=== PATIENT | female | born 1955 | race Two or more races ===

== ENCOUNTER 2024-09-08 18:51 | Emergency (ER) | payer MEDICARE, SELFPAY ==
[2024-09-08 19:18] VITALS: BP 146/70; PULSE 98; RESP 18; TEMP 36.6; O2SAT 100; BMI 26.2
--- NOTE | 2024-09-08 19:22 | EDNOTE_ITS ---
<Statement entered by Angelica Cerda MD - 09/08/24 19:43> As co-signing physician, I was present and available for consult prn. I concur with the plan and care as documented by the midlevel provider. ED Skin Abcess FB-RME/HPI General Chief complaint: Abdominal Pain Stated complaint: RIGHT LOWER QUADRANT PAIN Time Seen by Provider: 09/08/24 19:10 Arrival date/time: 09/08/24 18:51 69 year old female present to emergency room with c/o of rash for 3 days. pt report abd and back pain. LOCATION: abd and back SEVERITY: Symptoms are described as being severe with limitations on activities of daily living QUALITY: Symptoms are described as being dull or achy CONTEXT: The patient is unable to identify any inciting events. DURATION/TIMING: The symptoms started approximately one day ago and have been constant this then, and have been progressive getting worse. ASSOCIATED SYMPTOMS: The patient is unable to identify any other associated symptoms. MODIFYING FACTORS: The patient is unable to identify any alleviating or aggravating symptoms. PERTINENT ROS: denies IVDU, states no immunocompromising condition, denies any penetrating trauma, no fever, no unexplained nausea or vomiting, no headache, no chest pain REVIEW OF SYSTEMS: See History of Present Illness - with the exception of those mentioned in the history of present illness, all other systems reviewed and reported as negative GENERAL: In general the patient is awake, interactive, in an emergency department gurney. HEAD/EYES/EARS/NOSE/THROAT: normo-cephalic, atraumatic, mucus membranes are moist, anicteric, palpebral conjunctiva is pink, trachea is midline. ABDOMEN: soft, not tender, no masses appreciated BACK: normal range of motion without pain. NEUROLOGICAL: cranio-facial features are symmetric, moves all four extremities equally without obvious limitations or weakness. EXTREMITY: no tenderness to palpation over the long bones or large joints of the bilateral upper and lower extremities, no joint swelling, no joint erythema, no signs of trauma, no unilateral leg swelling and no peripheral edema. SKIN: warm, dry, well-perfused, no jaundice, + group like erythema rash consisted with shingles left abd/back region, does not cross dermatones no telangiectasias or petechia. PSYCH: calm, cooperative, no evidence of psychosis or agitation Related Data Previous Rx's ?Medication ?Instructions ?Recorded acyclovir 800 mg tablet 800 mg PO .5x 7 days #35 tabs 09/08/24 Allergies Allergy/AdvReac Type Severity Reaction Status Date / Time No Known Allergies Allergy Verified 09/08/24 18:52 Course Course Course Narrative: Patient presenting with shingles Presentation consistent with Herpes Zoster.? N o evidence of eye involvement.? No evidence of infections including cellulitis, measles, rubella.? Supportive therapies discussed.? Antiviral therapy prescribed. Discussed with patient that zoster patients may have pain persisting despite medications.? Return if having high fever, significant spread, pain, eye involvement, or other concerns. Plan:? Educated Pt on Dx of Herpes zoster, including typical resolution in 2-4wk? Prescribed acyclovir 800mg 5x for 7 days Advised on OTC acetaminophen or ibuprofen as directed for pain Advised Pt on supportive therapies, including application of warm compresses for pain control, loose/open shirts to decrease skin irritation, gently washing blisters w/ soap and H2O, refrain from opening any blisters, OTC analgesics, calamine lotion, and covering any ruptured lesions. Instructed patient to monitor for signs of worsening pain or fever, neck stiffening, hearing loss, decreased cognition, worsening inflammation, or blistering with discharge.? Return with new or worsening symptoms.?? Quality Measures none Orders Category Date Time Status Acyclovir [Zovirax] Med 09/08/24 19:18 Discontinued 800 mg PO X1 ONE Gabapentin Med 09/08/24 19:18 Discontinued 400 mg PO X1 ONE Vital Signs Vital signs: Vital Signs Temperature 98 F 09/08/24 19:18 Pulse Rate 98 09/08/24 19:18 Respiratory Rate 18 09/08/24 19:18 Blood Pressure 146/70 H 09/08/24 19:18 Pulse Oximetry (%) 100 09/08/24 19:18 Oxygen Delivery Method Room Air 09/08/24 19:18 Skin / Abscess / Foreign Body Patient data External records reviewed:: None Clinical information provided by:: patient Social determinants that could affect healthcare access:: none Patient has the following chronic illnesses:: none How is presenting disease/condition affected by chronic disease/condition?: no chronic disease Evaluation data The following diagnostics were reviewed and interpreted by me:: other (specify) (none ) Lab and/or radiology exams considered but not ordered:: none Interpretation Summary: none Medications / Prescriptions Medications or Prescriptions considered but not ordered:: none Medication administrations:: Medication Administration History Discontinued Medications Acyclovir (Acyclovir 800 Mg Tablet) 800 mg PO X1 ONE Stop: 09/08/24 19:19 Gabapentin (Gabapentin 100 Mg Capsule) 400 mg PO X1 ONE Stop: 09/08/24 19:19 as stated above Consultations Consultation(s) initiated? (list below): No Diagnosis Skin/Abscess Differential Diagnosis: urticaria, herpes zoster, allergic reaction to drug and insect bites Most likely diagnosis given after review of the tests above:: shingles Admission Indicated Admission indicated?: not indicated Admission Request Was there a request for admission?: No Disposition Plan Disposition Plan: Discharge Discharge Attestation Discharge Attestation: The patient and all family members were given an opportunity to ask questions and understood the discharge instructions. Discharge instructions specifically effects, indications for sooner follow up or return to the emergency department, and the expected course of current diagnosis. Patient condition: Stable Discharge Plan Plan Patient Disposition: HOME (Self Care) Prescriptions/Referrals Prescriptions/Med Rec: New acyclovir 800 mg tablet 800 mg PO .5x 7 Days Qty: 35 0RF Rx Instructions: while awake; give 5 doses in 24 hours Problem List Clinical Impression: Shingles Patient/Caregiver Discharge Instructions Education Materials: ED Shingles (Herpes Zoster) Print Language: Irish Stand Alone Forms: Ros[employer]e Award Info., Patient Portal Info Letter
[2024-09-08] MEDS: ACYCLOVIR 800 MG TABLET PO (19:43)
[2024-09-08] MEDS: GABAPENTIN 100 MG CAPSULE 400 MG PO (19:46)
== END 2024-09-08 19:49 | disposition home or self-care (01) ==
LOC: SERX 19:31
PROVIDERS: Emergency Provider Emergency Medicine
DX: B02.9 Zoster without complications (principal)
CPT/HCPCS: 99282; A9270

== ENCOUNTER 2024-09-16 13:16 | Emergency (ER) | payer MEDICARE, SELFPAY ==
[2024-09-16] VITALS (7 sets, daily range): BP systolic 125–168; BP diastolic 67–88; PULSE 71–110; RESP 14–20; TEMP 36.6–36.9; O2SAT 97–100
--- NOTE | 2024-09-16 13:38 | PD.EDRME ---
Rapid Medical Screening Exam E Arrival date/time: 09/16/24 13:16 This is a 69-year-old female that comes into the emergency room with complaints of left lower quadrant abdominal pain. Patient reports that she was recently diagnosed with shingles approximately 1 week ago and has them to her left flank and left lower abdomen. Patient states that most of the pain is gone but the pain is more internal. Patient denies any nausea vomiting diarrhea. Patient has a history of diabetes, high blood pressure, hyperlipidemia, thyroid disease. I have greeted and performed a focused initial assessment of this patient. Initial appropriate labs ordered at this time. A comprehensive ED assessment and evaluation of the patient and analysis of all test and completion of medical decision making process will be conducted by additional ED provider. Chief Complaint: Abdominal Pain Time Seen by Provider: 09/16/24 13:32 Vital signs: Vital Signs Temperature 98.4 F 09/16/24 13:30 Pulse Rate 110 H 09/16/24 13:30 Respiratory Rate 20 09/16/24 13:30 Blood Pressure 125/74 09/16/24 13:30 Pulse Oximetry (%) 98 09/16/24 13:30 Oxygen Delivery Method Room Air 09/16/24 13:30
[2024-09-16 14:16] LABS: Collection Type, Urine Voided
[2024-09-16 15:01] LABS: Basophils # (Auto) 0.1 Thou/mm3 (0.0-0.2); Basophils % (Auto) 1 % (0-2.5); Eosinophils # (Auto) 0.1 Thou/mm3 (0.0-0.5); Eosinophils % (Auto) 1 % (0-10); Hematocrit 30.6 % (36.0-46.0); Hemoglobin 9.7 g/dL (12.0-16.0); Immature Granulocytes % (Auto) 0 % (0-0); Immature Granulocytes Auto 0.02 Thou/mm3 (0.00-0.00); Lymphocytes % (Auto) 22 % (10-50); Mean Corpuscular HGB Conc 31.7 g/dl (31.0-37.0); Mean Corpuscular Hemoglobin 24.9 pg (25.0-35.0); Mean Corpuscular Volume 79 fL (80-100); Monocytes # (Auto) 0.5 Thou/mm3 (0.0-0.8); Monocytes % (Auto) 6 % (0-12); Neutrophils # (Auto) 6.2 Thou/mm3 (1.8-7.7); Neutrophils % (Auto) 70 % (37-80); Nucleated Red Blood Cell % 0 /100 WBC (0); Platelet Count 289 Thou/mm3 (140-440); RDW Standard Deviation 45.6 fL (36.4-46.3); White Blood Count 8.8 Thou/mm3 (3.6-11.0)
[2024-09-16 15:02] LABS: Alanine Aminotransferase 32 U/L (10-49); Albumin, Serum 3.7 gm/dL (3.4-4.8); Albumin/Globulin Ratio 1.5 (1.2-2.2); Alkaline Phosphatase 130 U/L (46-116); Anion Gap 7 (7-16); Aspartate Amino Transferase 18 U/L (0-34); BUN/Creatinine Ratio 10 Ratio (12-20); Bilirubin,Total 0.3 mg/dL (0.3-1.2); Blood Urea Nitrogen 13 mg/dL (9-23); Calcium 8.9 mg/dL (8.3-10.6); Calcium (Corrected) 9.1 mg/dL (8.5-10.1); Carbon Dioxide 27.6 mMol/L (20.0-31.0); Chloride 99 mMol/L (98-107); Creatinine (Component) 1.3 mg/dL (0.6-1.3); Estimated Creatinine Clearance 35.1 mL/min (>60); Globulin 2.5 gm/dL (2.3-3.5); Lipase 72 U/L (12-53); Osmolality,Calculated 293 (275-295); Potassium 3.4 mMol/L (3.4-5.1); Sodium 134 mMol/L (136-145); Total Protein 6.2 gm/dL (5.7-8.2); eGFR 45 See Note
[2024-09-16 15:04] LABS: Glucose 544 mg/dL (74-106)
[2024-09-16 15:33] LABS: Bacteria,Urine 4+; Bilirubin,Urine Negative (Negative); Blood,Urine 1+ (Negative); Clarity,Urine Turbid (Clear/Hazy); Color,Urine Yellow (Lt Yel-Yel); Glucose, Urine 4+ (Negative); Ketones,Urine 1+ (Negative); Nitrite,Urine Negative (Negative); PH,Urine 6.5 (5.0-7.0); Protein,Urine 3+ (Neg - Trace); RBC,Urine 6 /hpf (0-3); Specific Gravity,Urine 1.024 (1.001-1.035); Squamous Epithelial Cell,Urine 3 /hpf (0-5); Urobilinogen,Urine Negative mg/dL (0.0-1.0); WBC,Urine 17 /hpf (0-5)
[2024-09-16 15:38] LABS: Culture Indicated,Urine Yes; Leukocyte Esterase,Urine Positive (Negative)
--- NOTE | 2024-09-16 20:25 | EDNOTE_ITS ---
ED Abdominal Pain RME/HPI General Chief Complaint: Abdominal Pain Stated complaint: LLQ ABD PAIN Time seen by provider: 09/16/24 13:32 Arrival date/time: 09/16/24 13:16 RME / HPI RME / HPI narrative: 69-year-old female patient with significant history of hypertension, recent diagnosis of shingles to the left flank pain area, currently taking antiviral medication, came in for evaluation regarding worsening pain to the left flank area radiating to the front. This been going for at least 1 week, described as sharp pain, severity moderate. Patient denies any vomiting. Denies any fever. Denies any diarrhea constipation. Denies any dysuria. No medications taken prior travel. Related Data Previous Rx's ?Medication ?Instructions ?Recorded cefuroxime axetil 500 mg tablet 500 mg PO BID #14 tabs 09/16/24 Allergies Allergy/AdvReac Type Severity Reaction Status Date / Time No Known Allergies Allergy Verified 09/08/24 18:52 Review of Systems Review of Systems Narrative Review of Systems: Review of system reviewed and within normal limits except mentioned in HPI ED Exam Narrative Physical exam: VITAL SIGNS: Reviewed. GENERAL APPEARANCE: Alert and interactive, follows commands, no acute distress, HEAD AND FACE: Non-traumatic. ENT: PERRL, pink conjunctivitis, eyelid no trauma, Mucous membrane moist. NECK: Supple, nontender, no nuchal rigidity. CHEST: No tenderness, no crepitus, no paradoxical movement, no retractions. LUNGS: Clear, well ventilated, symmetric, no rales, no wheezing, no ronchi, no stridor, good breath sounds bilaterally. HEART: Regular rate, regular rhythm, no murmur, no gallops. ABDOMEN: Soft, positive bowel sounds, nondistended, no guarding, nontender, no rebound, no masses, +multiple dry lesions with scabbing, left flank area with tenderness RECTAL: Deferred. GENITAL: Deferred. NEUROLOGICAL: Gross motor function intact sensory function intact, Appropriate for age. MUSCULOSKELETAL: low back nontender, full range of motion. EXTREMITIES: Nontender, full range of motion. SKIN: Color pink, dry, no rash, no lacerations, no abrasions, no contusions. LYMPHATICS: Deferred. Course Quality Measures none Orders Category Date Time Status CBC Stat Lab 09/16/24 14:21 Completed Comprehensive Metabolic Panel Stat Lab 09/16/24 14:21 Completed Lipase Stat Lab 09/16/24 14:21 Completed Urinalysis, C/S if Indicated Stat Lab 09/16/24 13:57 Completed Urine Culture Stat Lab 09/16/24 13:57 Received Ketorolac Inj [Toradol Inj] Med 09/16/24 20:24 Discontinued 30 mg IVP X1 ONE Sodium Chloride 0.9% 1000 ml [Ns] 1,000 ml Med 09/16/24 20:24 Discontinued IV 999 mls/hr cefTRIAXone/D5w 1gm IV premix [Rocephin/D5w 1gm IV Med 09/16/24 20:25 Discontinued premix] 50 ml IV X1 Vital Signs Vital signs: Vital Signs Temperature 98.4 F 09/16/24 13:30 Pulse Rate 110 H 09/16/24 13:30 Respiratory Rate 20 09/16/24 13:30 Blood Pressure 125/74 09/16/24 13:30 Pulse Oximetry (%) 98 09/16/24 13:30 Oxygen Delivery Method Room Air 09/16/24 13:30 Abdominal Pain MDM MDM Narrative MDM Narrative:: Patient initial blood sugar was noted to be above 500, with no sign of diabetic ketoacidosis. Patient received IV fluids for hydration, patient refused insulin here she told me that she had a lot of insulin at home she will give herself insulin when she arrived tonight. Patient was also given supraduction IV Fe. For UTI. The rest of the labs are Patient data External records reviewed:: None Clinical information provided by:: none Social determinants that could affect healthcare access:: none Patient has the following chronic illnesses:: Hypertension How is presenting disease/condition affected by chronic disease/condition?: exacerbated by Evaluation data The following diagnostics were reviewed and interpreted by me:: lab results and radiology exam(s) Lab and/or radiology exams considered but not ordered:: None Interpretation Summary: CBC no leukocytosis noted, except for hemoglobin of 9.7 hematocrit 30.6 glucose of 544 with no sign of DKA. Urinalysis positive for UTI Medications / Prescriptions Medications or Prescriptions considered but not ordered:: None Medication administrations:: Medication Administration History Discontinued Medications Sodium Chloride (Ns) 1,000 mls @ 999 mls/hr IV .Q1H1M ONE Stop: 09/16/24 21:24 Last Admin: 12/07/24 20:56 Dose: 999 mls/hr Documented By: NILAY Ceftriaxone Sodium/Dextrose (Rocephin/D5w 1gm Iv Premix) 50 mls @ 100 mls/hr IV X1 ONE Stop: 09/16/24 20:54 Last Admin: 09/16/24 20:56 Dose: 100 mls/hr Documented By: NILAY Ketorolac Tromethamine (Ketorolac Inj 30 Mg/Ml Vial) 30 mg IVP X1 ONE Stop: 09/16/24 20:25 Last Admin: 09/16/24 20:55 Dose: 30 mg Documented By: NILAY Toradol, ceftriaxone, and IV fluids Consultations Consultation(s) initiated? (list below): No Diagnosis Differential diagnosis abdominal pain: other (UTI, postherpetic pain secondary to shingles left flank area) Most likely diagnosis given after review of the tests above:: UTI, hyperglycemia Admission Indicated Admission indicated?: not indicated Explain why admission is indicated or not indicated:: Stable for discharge Admission Request Was there a request for admission?: No Disposition Plan Disposition Plan: Discharge Discharge Attestation Discharge Attestation: The patient and all family members were given an opportunity to ask questions and understood the discharge instructions. Discharge instructions specifically effects, indications for sooner follow up or return to the emergency department, and the expected course of current diagnosis. Patient condition: Stable Discharge Plan Plan Patient Disposition: HOME (Self Care) Disposition Comment: stable Prescriptions/Referrals Prescriptions/Med Rec: New cefuroxime axetil 500 mg tablet 500 mg PO BID Qty: 14 0RF Referrals: No Primary/Family,Physician [Primary Care Provider] - In 1 week Problem List Clinical Impression: UTI (urinary tract infection), Hyperglycemia due to diabetes mellitus Patient/Caregiver Discharge Instructions Discharge Activity: activity as tolerated Education Materials: ED Diet: Diabetes Additional Instructions: Thank you for the opportunity for serving you today. You are stable for discharged . You are advised to: Follow-up with your PCP in 1 to 2 days Return to ED for worsening of symptoms Increase oral fluids Take medication as prescribed Print Language: Turkmen Stand Alone Forms: [facility]e Award Info., Patient Portal Info Letter
[2024-09-16] MEDS: KETOROLAC INJ 30 MG/ML VIAL IVP (20:55)
[2024-09-16] MEDS: SODIUM CHLORIDE 0.9% 1000 ML 1,000 ML 999 ML IV (20:56)
[2024-09-16] MEDS: cefTRIAXone/D5w 1gm IV premix 50 ML IV (20:56)
== END 2024-09-16 22:46 | disposition home or self-care (01) ==
PROVIDERS: Nurse Practitioner Family; Emergency Provider Emergency Medicine
DX: N39.0 Urinary tract infection, site not specified (principal); E11.65 Type 2 diabetes mellitus with hyperglycemia; I10 Essential (primary) hypertension
CPT/HCPCS: 36415; 80053; 81001; 83690; 85025; 87077; 87086; 87186; 96374; 99284; J0696; J1885; J7030

== ENCOUNTER 2025-02-22 10:19 | Outpatient (RCR) | payer MEDICARE, SELFPAY ==
--- NOTE | 2025-02-22 10:41 | PTNOTE_ITS ---
PT OP Initial Eval Patient Information Outpatient Physical Therapy Treatment Date: 02/22/25 Visit Reasons: Difficulty in walking Medical Diagnosis: R26.2 Treatment Dx #1: balance impairment Treatment Dx #2: gait impairment Start of Care: 02/22/25 Date of Onset: 08/2023 Smoking Status Smoking Status: Light (< 1 pack/day) Cessation Counseling Provided: BAUTISTA was advised that quitting smoking is the single most important factor to protect the health of themselves and their family. Discussed the benefits of quitting smoking with patient. Encouraged patient to quit smoking and provided Cessation assistance materials and resources. Tobacco Use: Cigarette Years smoked: 45 Are you interested in quitting?: Yes Would you like additional Smoking Cessation Counseling?: No Initial Assessment Subjective: Pt is 69 yr old ukrainian speaking female s/p CVA in 2022 presents ambulating with FWW and reports B LE weakness and poor balance which makes it difficult to walk. Pt walks from car [place] building [place] and feels fatigued. PLOF: Pt was ambulating with symmetrical pattern without 4WW prior to CVA PMH: HTN, DM, hypothyroidism, breast ca, B TKA's, shingles Pt goal: better balance Objective: B LE strength: Quads: R: 4-/5, L: 4-/5 Gait: R knee hyperextends in stance phase Tandem stance: unsteady balance without hands with L foot fwd Eyes closed: unsteady Assessment: Pt presents with unsteady balance with 4WW consistent with CVA with R hemiplegia. Pt has poor quad control in stance phase and the knee hyperextends which affects balance. Pt requires skilled therapy to meet goals and has fair rehab potential. Short Term and Custodial Goals 1. Ind with HEP 2. Steady balance with tandem stance x10 seconds each foot 3. Improved ambulatory distance to 200' with R knee Treatment Plan 90 day POC ? 1. Manual therapy ? 2. Therex ? 3. Modalities as indicated, moist heat, ice, estim Frequency and Duration: 1-2x a week for 12 sessions Certification Dates: 02/22/25 to 05/24/25 Procedure Charges OP PT Eval Mod Complex 30 minutes: Yes
== END 2025-03-10 23:59 | disposition home or self-care (01) ==
LOC: CPTX 10:19
PROVIDERS: PCP Internal Medicine; Referring Provider Internal Medicine; Visit Provider Internal Medicine
DX: R26.2 Difficulty in walking, not elsewhere classified (principal); R26.89 Other abnormalities of gait and mobility; Z71.6 Tobacco abuse counseling; F17.210 Nicotine dependence, cigarettes, uncomplicated; Z86.73 Personal history of transient ischemic attack (TIA), and cerebral infarction without residual deficits; I10 Essential (primary) hypertension; E11.9 Type 2 diabetes mellitus without complications
CPT/HCPCS: 97162

== ENCOUNTER 2025-04-05 14:30 | Outpatient (RCR) | payer MEDICARE, SELFPAY ==
--- NOTE | 2025-03-19 18:13 | PT.ODAYNRPT ---
PT Outpatient Daily Note OP Daily Note Outpatient Physical Therapy Treatment Date: 03/19/25 Visit Reasons: Difficulty in walking Subjective: Same as time of evaluation Objective: See F/S for therex Assessment: Difficulty with tandem stance without hands to keep balance. She is a fall risk, needs walker Plan: Continue per POC Length of Time (minutes) of Treatment: 30 Minutes Procedure Charges Therapeutic Exercise 30 minutes: Yes
--- NOTE | 2025-03-26 15:51 | PTNOTE_ITS ---
PT Outpatient Daily Note OP Daily Note Outpatient Physical Therapy Treatment Date: 03/26/25 Visit Reasons: Difficulty in walking Subjective: Pt c/o feeling tired today. Objective: Please see flow sheet for ther ex list. Assessment: Interventions given alternating sitting and standing to maximize pt participation. Plan: Continue with POC. Length of Time (minutes) of Treatment: 30 Minutes QUALITY AUDIT REPRESENTATIVE Service Modifier Method I: Divide the number of min of care provided by the QUALITY AUDIT REPRESENTATIVE/CSW by the total min of care provided then multiply by 100. If greater than 11 percent modifier is required. Method II: Divide the total time of care provided to patient by 10 (round to the nearest whole number) and add 1 min. to set the minimum time requirement. If treatment total was 60 min., then 10% of 6 min PT CQ modifier applied: CQ Modifier applied Procedure Charges Therapeutic Exercise 30 minutes: Yes
--- NOTE | 2025-03-28 11:11 | PTNOTE_ITS ---
PT Outpatient Daily Note OP Daily Note Outpatient Physical Therapy Treatment Date: 03/28/25 Visit Reasons: Difficulty in walking Subjective: Pt reports she was sore and tired after last session. Objective: Please see flow sheet for ther ex list. Assessment: Pt demonstrates poor activity tolerance due to fatigue and general weakness. Alternated sitting and standing with exercises. Plan: Continue with POC. Length of Time (minutes) of Treatment: 30 Minutes COIN COUNTER AND WRAPPER Service Modifier Method I: Divide the number of min of care provided by the COIN COUNTER AND WRAPPER/COUNTY AGRICULTURAL AGENT by the total min of care provided then multiply by 100. If greater than 11 percent modifier is required. Method II: Divide the total time of care provided to patient by 10 (round to the nearest whole number) and add 1 min. to set the minimum time requirement. If treatment total was 60 min., then 10% of 6 min PT CQ modifier applied: CQ Modifier applied Procedure Charges Therapeutic Exercise 30 minutes: Yes
--- NOTE | 2025-04-03 18:29 | PT.ODAYNRPT ---
PT Outpatient Daily Note OP Daily Note Outpatient Physical Therapy Treatment Date: 04/03/25 Visit Reasons: Difficulty in walking Subjective: Wants to try ambulating with cane Objective: See F/S for therex Assessment: Difficulty with tandem stance without hands to keep balance. She is a fall risk, needs walker, unsteady with cane, needs CGAx1 if using the cane Plan: Continue per POC Length of Time (minutes) of Treatment: 30 Minutes Procedure Charges Therapeutic Exercise 30 minutes: Yes
--- NOTE | 2025-04-05 15:33 | PT.ODAYNRPT ---
PT Outpatient Daily Note OP Daily Note Outpatient Physical Therapy Treatment Date: 04/05/25 Visit Reasons: Difficulty in walking Subjective: LE soreness after last visit Objective: See F/S for therex Assessment: Difficulty with tandem stance without hands to keep balance. She is a fall risk, needs walker, unsteady with cane, needs CGAx1 if using the cane Plan: Continue per POC Length of Time (minutes) of Treatment: 30 Minutes Procedure Charges Therapeutic Exercise 30 minutes: Yes
== END 2025-04-09 23:59 | disposition home or self-care (01) ==
LOC: CPTX 14:30
PROVIDERS: PCP Internal Medicine; Referring Provider Internal Medicine; Visit Provider Internal Medicine
DX: R26.2 Difficulty in walking, not elsewhere classified (principal); R26.89 Other abnormalities of gait and mobility; R53.1 Weakness; I10 Essential (primary) hypertension; E11.9 Type 2 diabetes mellitus without complications
CPT/HCPCS: 97110

== ENCOUNTER 2025-04-17 09:00 | Outpatient (RCR) | payer MEDICARE, SELFPAY ==
--- NOTE | 2025-04-10 09:30 | PT.ODS1RPT ---
PT OP Progress/Discharge Note Date of Service: 04/10/25 Progress Note/DC Note Progress Note/Discharge Note: Progress Note Patient Information Visit Reasons: difficulty walking Service Continue Service or Discharge: Continue Service Status Subjective: Feels more tired today and the day after therapy she is very tired and sore. Objective: B LE strength: Quads: B: 4/5 Gait: R knee hyperextension with gait Tandem stance: more steady with L foot fwd Assessment: Pt has atended the eval and 5 Rx sessions with slow progress with goals thus far. She hasn't met goals yet due to continued balance impairments and R knee hyperextension in stance phase. Pt would benefit from continued therapy. Plan: Continue per POC up to 12 sessions Procedure Charges Therapeutic Exercise 30 minutes: Yes
--- NOTE | 2025-04-12 16:30 | PT.ODAYNRPT ---
PT Outpatient Daily Note OP Daily Note Outpatient Physical Therapy Treatment Date: 04/12/25 Visit Reasons: difficulty walking Subjective: Pt feels more fatigued today, wants to leave early Objective: See F/S for therex Assessment: Difficulty with tandem stance without hands to keep balance and she tends to fall to the L. She is a fall risk, needs walker, unsteady with cane, needs CGAx1 if using the cane Plan: Continue per POC Length of Time (minutes) of Treatment: 15 Minutes Procedure Charges Therapeutic Exercise 30 minutes: Yes
--- NOTE | 2025-04-17 09:52 | PT.ODAYNRPT ---
PT Outpatient Daily Note OP Daily Note Outpatient Physical Therapy Treatment Date: 04/17/25 Visit Reasons: difficulty walking Subjective: LE soreness after last visit Objective: See F/S for therex Assessment: Decreased R LE strength and WB tolerance. Difficulty with tandem stance without hands to keep balance. She is a fall risk, needs walker, unsteady with cane. Plan: Continue per POC Length of Time (minutes) of Treatment: 30 Minutes Procedure Charges Therapeutic Exercise 30 minutes: Yes
== END 2025-05-10 23:59 | disposition home or self-care (01) ==
LOC: CPTX 09:00
PROVIDERS: PCP Internal Medicine; Referring Provider Internal Medicine; Visit Provider Internal Medicine
DX: R26.2 Difficulty in walking, not elsewhere classified (principal); R53.1 Weakness; R26.89 Other abnormalities of gait and mobility; I10 Essential (primary) hypertension; E11.9 Type 2 diabetes mellitus without complications; Z86.73 Personal history of transient ischemic attack (TIA), and cerebral infarction without residual deficits
CPT/HCPCS: 97110